=== PATIENT | male | born 1975 | race Two or more races ===

== ENCOUNTER 2017-05-10 17:24 | Emergency (ER) | payer OTHER ==
[~2017-05-10] VITALS: Ht 182.9 cm; Wt 85.6 kg
[2017-05-10 18:05] LABS: HEMATOCRIT 46.6 % (39.2-51.8); HEMOGLOBIN 15.5 g/dL (13.7-18.0); WHITE BLOOD COUNT 12.6 x10^3/uL (3.4-10)
[2017-05-10 18:12] LABS: BLOOD UREA NITROGEN 9 mg/dL (7-18)
[2017-05-10] MEDS ORDERED: HYDROmorphone 1 MG/ML, 1ML IM ONE (18:30)
[2017-05-10] MEDS ORDERED: HYDROmorphone 2 MG/ML, 1ML ONE (18:39)
[2017-05-10 19:45] VITALS: BP 136/78
== END 2017-05-10 19:50 | disposition home or self-care (01) ==
LOC: ED 19:45
DX: K61.1 Rectal abscess (principal)
CPT/HCPCS: 36415; 46040; 80048; 82040; 85025; 96372; 99284; J1170